=== PATIENT | male | born 1975 | race African-American/Black ===

== ENCOUNTER 2021-08-16 02:06 | Emergency (ER) | payer OTHER ==
[~2021-08-16] VITALS: Ht 188 cm; Wt 104.3 kg
[2021-08-16] MEDS ORDERED: CYCLOBENZAPRINE10 MG PO (03:38)
[2021-08-16] MEDS ORDERED: MEDROL4 M1 PO (03:38)
== END 2021-08-16 03:45 | disposition home or self-care (01) ==
LOC: ED 02:06
DX: M54.42 Lumbago with sciatica, left side (principal); V43.62XA Car passenger injured in collision with other type car in traffic accident, initial encounter
CPT/HCPCS: 72100; 81001; 99284-25; A9270; J7512